=== PATIENT | female | born 2000 | race Caucasian/White ===

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

== ENCOUNTER 2021-05-21 00:08 | Emergency (ER) | payer MEDICAID ==
[~2021-05-21] VITALS: Ht 157.5 cm; Wt 77.3 kg
[~2021-05-21 00:08] MED LIST changes: +BUSPAR 30MG30 MG/TAB PO; +PRISTIQ100 MG PO
[2021-05-21 00:32] LABS: HEMOGLOBIN 13.6 g/dl (12.0-15.0); MEAN CELL VOLUME 94 fl (80.0-95.0); MEAN CORPUSCULAR HEMOGLOBIN 30 pg (26.0-32.0); MEAN CORPUSCULAR HGB CONC 32 g/dl (33.0-37.0); MEAN PLATELET VOLUME 10.1 fl (7.4-10.4); PLATELET COUNT 436 K/mm3 (130-400); RED BLOOD COUNT 4.59 M/mm3 (4.10-5.30); REDCELL DISTRIBUTION WIDTH-CV 12.7 % (11.5-14.5)
[2021-05-21 00:50] LABS: ALBUMIN 4.8 gm/dL (3.5-5.0); BILIRUBIN,TOTAL 0.6 mg/dL (0.0-1.0); C-REACTIVE PROTEIN 2.2 mg/dL (0.0-0.9); CALCIUM 10.1 mg/dL (8.4-10.2); CREATININE, serum 0.67 (0.52-1.25); POTASSIUM 3.6 mmol/L (3.4-5.0)
[2021-05-21 00:56] LABS: EOSINOPHIL 2 % (0-4); HYPOCHROMIA 2+; LYMPHOCYTE 13 % (20.0-51.0); NEUTROPHILS 74 % (42.0-75.2); PLATELET ESTIMATE INCREASED (NORMAL)
[2021-05-21 01:08] LABS: COLLECTION METHOD CLEAN CATCH
[2021-05-21 01:16] LABS: MUCOUS Present /lpf; PH 6 (5-8); SQUAMOUS EPITHELIAL 20-50 /hpf; URINE APPEARANCE Turbid; URINE BACTERIA None Seen /hpf; URINE BILIRUBIN Negative (NEGATIVE); URINE BLOOD 2+ (NEGATIVE); URINE COLOR Yellow; URINE GLUCOSE Negative (NEGATIVE); URINE KETONE Negative (NEGATIVE); URINE LEUKOCYTE ESTERASE 3+ (NEGATIVE); URINE NITRATE Positive (NEGATIVE); URINE PROTEIN(semi-quant) 1+ (NEGATIVE)
[2021-05-21 01:25] LABS: TRICYCLIC ANTIDEPRESS URINE POSITIVE
[2021-05-21] MEDS ORDERED: OMNICEF 300MG300 MG PO (02:04)
[2021-05-21 03:24] VITALS: BP 135/85; PULSE 110; TEMP 99.6
== END 2021-05-21 03:34 ==
LOC: COL.ER 00:08
PROVIDERS: Nurse Practitioner Primary Care
DX: N12 Tubulo-interstitial nephritis, not specified as acute or chronic (principal); R45.851 Suicidal ideations; F31.9 Bipolar disorder, unspecified; F41.9 Anxiety disorder, unspecified; F17.210 Nicotine dependence, cigarettes, uncomplicated; Z79.899 Other long term (current) drug therapy; Z20.822 Contact with and (suspected) exposure to COVID-19
CPT/HCPCS: J0696; J1885; J2405; J7030; Q9967

== ENCOUNTER 2021-09-22 18:12 | Emergency (ER) | payer MEDICAID ==
[~2021-09-22] VITALS: Ht 157.5 cm; Wt 81.8 kg
[~2021-09-22 18:12] MED LIST changes: +OMNICEF 300MG300 MG PO
[2021-09-22 18:16] VITALS: TEMP 98.6
[2021-09-22 19:10] VITALS: BP 131/79; PULSE 84
== END 2021-09-22 19:12 | disposition home or self-care (01) ==
LOC: COL.ER 18:12
DX: S00.531A Contusion of lip, initial encounter (principal); R51.9 Headache, unspecified; Y04.0XXA Assault by unarmed brawl or fight, initial encounter

== ENCOUNTER 2022-06-27 05:49 | Emergency (ER) | payer MEDICAID ==
[~2022-06-27] VITALS: Ht 157.5 cm; Wt 90.5 kg
[2022-06-27 06:05] VITALS: BP 126/85; TEMP 98.4
[2022-06-27 07:27] LABS: COLLECTION METHOD CLEAN CATCH
[2022-06-27 07:42] LABS: MUCOUS Present (NOT PRESENT); URINE BACTERIA Rare /hpf (NONE SEEN)
[2022-06-27 07:43] LABS: URINE APPEARANCE Cloudy (CLEAR/HAZY); URINE COLOR Yellow (YELLOW)
[2022-06-27 07:44] LABS: PH 5.5 (5.0-8.5); URINE BLOOD TRACE-INTACT (NEGATIVE); URINE GLUCOSE Negative (NEGATIVE); URINE KETONE TRACE (NEGATIVE); URINE NITRATE Positive (NEGATIVE); URINE PROTEIN(semi-quant) Negative (NEGATIVE); URINE UROBILINOGEN 0.2 E.U/dL (0.2-1.0)
[2022-06-27] MEDS ORDERED: PYRIDIUM 100MG100 MG PO (08:12)
[2022-06-27] MEDS ORDERED: MACROBID 1100 MG/CAP PO (08:12)
[2022-06-27 08:25] VITALS: PULSE 99
== END 2022-06-27 08:25 | disposition home or self-care (01) ==
LOC: COL.ER 05:49
PROVIDERS: Family Medicine
DX: N30.01 Acute cystitis with hematuria (principal); R51.9 Headache, unspecified; F17.210 Nicotine dependence, cigarettes, uncomplicated; F17.290 Nicotine dependence, other tobacco product, uncomplicated
CPT/HCPCS: J0780; J1100; J1200; J1885